=== PATIENT | male | born 1945 | race Caucasian/White ===

== ENCOUNTER 2022-09-30 08:27 | Day surgery (SDC) | payer MEDICARE, OTHER ==
[2022-09-30] MEDS ORDERED: fentaNYL 100 MCG/2 ML SDV IV ONE (08:28)
[2022-09-30] MEDS ORDERED: Midazolam 1 MG/ML 2 ML SDV IV ONE (08:28)
[2022-09-30] MEDS ORDERED: Sodium Chloride 0.9% 10 ML Syringe IV ONE (08:28)
[2022-09-30] MEDS ORDERED: Lactated Ringers 1,000 ML IV PRN (08:30)
[2022-09-30] MEDS: Sodium Chloride 0.9% 10 ML Syringe FLUSH PRN (09:14)
[2022-09-30] MEDS: acetaZOLAMIDE 500 MG Cap.ER PO ONE (10:38)
== END 2022-09-30 11:06 | disposition home or self-care (01) ==
LOC: FB.SDS 08:27
PROVIDERS: ATTEND Ophthalmology
DX: H26.9 Unspecified cataract (principal); I10 Essential (primary) hypertension; E78.00 Pure hypercholesterolemia, unspecified; R73.01 Impaired fasting glucose; Z79.899 Other long term (current) drug therapy; Z87.891 Personal history of nicotine dependence
CPT/HCPCS: 00142; 66984; 93005; A9270; J2250; J3010; J3490; V2632

== ENCOUNTER 2022-10-28 06:57 | Day surgery (SDC) | payer MEDICARE, OTHER ==
[~2022-10-28 06:57] MED LIST: Lactated Ringers 1,000 ML IV PRN; Sodium Chloride 0.9% 10 ML Syringe FLUSH PRN
[2022-10-28] MEDS ORDERED: fentaNYL 100 MCG/2 ML SDV IV ONE (06:58)
[2022-10-28] MEDS ORDERED: Midazolam 1 MG/ML 2 ML SDV IV ONE (06:58)
[2022-10-28] MEDS ORDERED: acetaZOLAMIDE 500 MG Cap.ER PO ONE (08:30)
== END 2022-10-28 09:31 | disposition home or self-care (01) ==
LOC: FB.SDS 06:57
PROVIDERS: ATTEND Ophthalmology
DX: H26.9 Unspecified cataract (principal); I10 Essential (primary) hypertension; E78.00 Pure hypercholesterolemia, unspecified; C67.9 Malignant neoplasm of bladder, unspecified; Z79.899 Other long term (current) drug therapy; Z87.891 Personal history of nicotine dependence; Z86.010 Personal history of colon polyps
CPT/HCPCS: 00142; 66984; A9270; J2250; J3010; V2632

== ENCOUNTER 2023-12-09 19:46 | Emergency (ER) | payer MEDICARE, OTHER ==
[2023-12-09 20:36] LABS: APPEARANCE,URINE CLEAR (CLEAR); BILIRUBIN,URINE NEGATIVE (NEGATIVE); COLOR,URINE YELLOW (YELLOW); GLUCOSE,URINE NORMAL (NORMAL); KETONES,URINE 15 mg/dL (NEGATIVE); LEUKOCYTE ESTERASE,URINE NEGATIVE (NEGATIVE); NITRITE,URINE NEGATIVE (NEGATIVE); OCCULT BLOOD,URINE NEGATIVE (NEGATIVE); PROTEIN,URINE NEGATIVE (NEGATIVE); UROBILINOGEN,URINE NORMAL (NEGATIVE)
[2023-12-09 20:40] LABS: BACTERIA,URINE FEW (NS); MUCUS,URINE FEW (NS); RBC,URINE 0-5 (0-5); SQUAMOUS EPITHELIAL CELLS,UR OCCASIONAL (NS,R,O); WBC,URINE 0-5 (0-5)
[2023-12-09 21:15] LABS: BASOPHILS ABSOLUTE AUTO 0.1 x10-3/uL (0.0-0.3); BASOPHILS PERCENT AUTO 0.9 % (0.3-3.8); EOSINOPHILS PERCENT AUTO 0.3 % (0.1-6.8); HEMATOCRIT 41.7 % (38.3-50.1); HEMOGLOBIN 14.3 g/dL (12.9-17.7); LYMPHOCYTES ABSOLUTE AUTO 0.5 x10-3/uL (0.5-4.5); LYMPHOCYTES PERCENT AUTO 9.1 % (15.8-45.3); MEAN CORPUSCULAR HGB CONC 34.3 g/dL (28.7-35.3); MEAN CORPUSCULAR VOLUME 90.5 fL (80.8-98.7); MEAN PLATELET VOLUME 8.2 fL (6.7-11.0); MONOCYTES ABSOLUTE AUTO 0.8 x10-3/uL (0.0-1.2); MONOCYTES PERCENT AUTO 14.1 % (5.5-15.2); NEUTROPHILS ABSOLUTE AUTO 4.3 x10-3/uL (1.7-6.9); NEUTROPHILS PERCENT AUTO 75.6 % (40.3-71.8); PLATELET COUNT,PLT 284 x10(3)uL (117-477); RED BLOOD CELL COUNT 4.61 x10(6)uL (3.90-5.90); RED CELL DISTRIBUTION WIDTH 13.2 % (12.4-15.0); WHITE BLOOD CELL COUNT,WBC 5.6 x10-3/uL (3.2-10.1)
[2023-12-09 21:17] LABS: BLOOD UREA NITROGEN,BUN 19 mg/dL (7-18); BUN/CREATININE RATIO 13.6 (9-20); CARBON DIOXIDE,CO2 30 mmol/L (21-32); CHLORIDE,CL 99 mmol/L (100-110); CREATININE 1.4 mg/dL (0.70-1.30); EST CRCL DRUG DOSING (CG) 38.44 mL/min; ESTIMATED GFR 52 mL/min (>60); GLUCOSE RANDOM 126 mg/dL (80-116); POTASSIUM,K 3.5 mmol/L (3.5-5.3); SODIUM,NA 136 mmol/L (135-145)
[2023-12-09 21:26] LABS: A/G RATIO 1.3; ALANINE AMINOTRANSFERASE,ALT 23 U/L (12-36); ALBUMIN 4.1 g/dL (3.2-4.6); ALKALINE PHOSPHATASE 69 IU/L (56-112); ASPARTATE AMNIOTRANSFERASE,AST 20 IU/L (5-25); BILIRUBIN TOTAL 0.7 mg/dL (0.1-1.3); PROTEIN TOTAL,TP 7.2 g/dL (6.0-8.0)
== END 2023-12-09 22:10 | disposition home or self-care (01) ==
LOC: FB.ED 19:46
DX: S06.0X0A Concussion without loss of consciousness, initial encounter (principal); E86.0 Dehydration; R82.4 Acetonuria; N17.9 Acute kidney failure, unspecified; I10 Essential (primary) hypertension; Z79.899 Other long term (current) drug therapy
CPT/HCPCS: 36415; 70450; 80053; 81001; 85025; 86140; 99284; 99285

== ENCOUNTER 2025-01-24 08:02 | Inpatient (IN) | payer MEDICARE, OTHER ==
[2025-01-24] MEDS: Carbidopa/Levodopa 25-100 MG Tab.ER PO SCH (18:44)
[2025-01-25] MEDS: Cholecalciferol (Vitamin D3) 25 MCG Tab PO SCH (09:01)
[2025-01-25] MEDS: Multivitamins with Iron/Calcium/Folic Acid/Minerals Tab PO SCH (09:02)
[2025-01-27] MEDS: Carbidopa/Levodopa 25-100 MG Tab.ER PO SCH (18:57)
== END 2025-02-08 10:25 | disposition hospice, home (50) | DRG 948 ==
LOC: FB.MS 11:48
PROVIDERS: ADMIT Internal Medicine; ATTEND Internal Medicine
DX: R53.81 Other malaise (principal); Z66 Do not resuscitate; H26.9 Unspecified cataract; I25.10 Atherosclerotic heart disease of native coronary artery without angina pectoris; I10 Essential (primary) hypertension; G20.A1 Parkinson's disease without dyskinesia, without mention of fluctuations; R53.1 Weakness; E78.5 Hyperlipidemia, unspecified; R29.2 Abnormal reflex; I65.23 Occlusion and stenosis of bilateral carotid arteries; Z85.51 Personal history of malignant neoplasm of bladder; Z98.890 Other specified postprocedural states; Z95.5 Presence of coronary angioplasty implant and graft; Z79.82 Long term (current) use of aspirin; Z79.899 Other long term (current) drug therapy; Z87.19 Personal history of other diseases of the digestive system; Z86.0100 Personal history of colon polyps, unspecified; Z98.49 Cataract extraction status, unspecified eye
CPT/HCPCS: 97116-GP; 97161-GP; 97165-GO; 97530-GO; 97530-GP; 99305; 99315; A9270-GY